=== PATIENT | female | born 1940 | race Caucasian/White ===

== ENCOUNTER 2022-07-09 21:00 | Emergency (ER) | payer MEDICARE ==
[2022-07-09 21:31] LABS: Bilirubin Negative (Negative); Blood, Urine Moderate (Negative); Clarity Turbid (Clear); Glucose, Urine (Dipstick) Negative (Negative); Ketone, Urine Negative (Negative); Leukocyte Large (Negative); Nitrite Positive (Negative); Protein, Urine (Dipstick) 100 mg/dL (Neg-Trace); Specific Gravity, Urine 1.025 (1.005-1.030); Urobilinogen 0.2 mg/dL (Less than 2)
[2022-07-09 22:01] LABS: Bacteria/HPF 3+ HPF (None Seen); Squamous Epithelial 0-3 HPF (0-3); WBC/HPF Greater Than 50 HPF (0-3)
[2022-07-09] MEDS ORDERED: Sulfameth/Trimethoprim DS 800-160mg TAB ONE (22:50)
[2022-07-09] MEDS ORDERED: Hydrocodone-Acetamin 15 ML UDCUP ONE ×2 (22:50→22:52)
== END 2022-07-09 23:04 | disposition home or self-care (01) ==
LOC: BURERS 21:00
DX: N39.0 Urinary tract infection, site not specified (principal); E78.5 Hyperlipidemia, unspecified; Z85.118 Personal history of other malignant neoplasm of bronchus and lung
CPT/HCPCS: 81003; 81015; 87077; 87086; 87186; 99283